=== PATIENT | female | born 1945 | race Caucasian/White ===

== ENCOUNTER 2024-01-05 12:33 | Outpatient (CLI) | payer MEDICARE, OTHER, SELFPAY ==
--- NOTE | 2024-01-05 13:00 | MR_ITS ---
Patient: BRITTANY AWAD Facility:?[facility] Patient ID:?[id number] Site Patient ID:?[id number]. Site :?[id number] Study:?MRI-Head W/ and W/O Cont 15 CC DOTAREM IAC'S-01/05/2024 1:41:40 PM Ordering Physician:?BRIANNA HAMILTON Final Report: INDICATION: Hearing loss. TECHNIQUE: Multiplanar multisequence MR imaging of the brain and internal auditory canals prior to and following intravenous contrast. COMPARISON: None. FINDINGS: Mild diffuse cerebral volume loss. No mass effect or midline shift. Scattered FLAIR hyperintensities in the supratentorial white matter, typical for mild chronic microvascular ischemic changes. No intracranial hemorrhage or pathologic extra-axial fluid collection. No diffusion restriction to suggest acute infarction. No pathologic intracranial enhancement. No mass or pathologic enhancement within the internal auditory canals or cerebellopontine angles. No concerning signal abnormalities in the inner ear structures. No vascular loop in the internal auditory canals. The major arterial flow voids at the skullbase are preserved. Thinning of the ocular lenses. The paranasal sinuses are well aerated. The mastoid air cells are clear. Right temporomandibular joint degenerative changes. IMPRESSION: 1. No acute intracranial abnormality. 2. No mass or pathologic enhancement within the internal auditory canals or cerebellopontine angles. 3. Mild chronic microvascular ischemic changes and diffuse cerebral volume loss. Dictated by Israel Lopez MD @ 01/05/2024 2:53:41 PM Signed by:?Israel Lopez MD @01/05/2024 2:53:41 PM (Electronic Signature)
== END 2024-01-05 12:34 | disposition home or self-care (01) ==
LOC: MRI 12:37
PROVIDERS: Visit Provider Otolaryngology
DX: H91.8X3 Other specified hearing loss, bilateral (principal); I67.82 Cerebral ischemia
CPT/HCPCS: 70553; A9575